=== PATIENT | male | born 1975 | race Caucasian/White ===

== ENCOUNTER 2020-03-14 11:24 | Outpatient (CLI) | payer OTHER, SELFPAY ==
--- NOTE | ~2020-03-14 | XR_ITS ---
EXAMINATION: XR lumbar spine 2-3V DATE: 03/14/2020 11:48 INDICATION: Left-sided low back pain. TECHNIQUE: 3 views of lumbar spine were obtained. COMPARISON: CT abdomen and pelvis 04/21/2019 FINDINGS: There is 7 degrees dextrocurvature of thoracolumbar spine. Vertebral body heights are vineet l. There is mildly decreased disc height at L4-L5 and L5-S1. There is mild facet joint osteoarthritis in lower lumbar spine. IMPRESSION: 1. Mild lumbar spondylosis. Reviewed, dictated and finalized at location B. IMPRESSION: 1. Mild lumbar spondylosis.
== END 2020-03-14 11:25 | disposition home or self-care (01) ==
LOC: CHSLAB 11:26 → CHSIMG 11:29
PROVIDERS: PCP Family Medicine; Visit Provider Family Medicine
DX: M54.5 Low back pain (principal)
CPT/HCPCS: 72100

== ENCOUNTER 2020-03-31 07:29 | Outpatient (CLI) | payer SELFPAY ==
--- NOTE | ~2020-03-31 | MR_ITS ---
EXAMINATION: MR lumbar spine wo con DATE: 03/31/2020 08:32 INDICATION: Low back pain. TECHNIQUE: Magnetic resonance imaging (MRI) of the lumbar spine was performed without intravenous con trast. Sequences included sagittal T2-weighted FSE, sagittal T2-weighted FS FSE, sagittal T1-weighted FSE, and axial T2-weighted FSE. COMPARISON: Lumbar spine radiograph 03/14/2020 FINDINGS: Bone alignment is normal. Vertebral body heights are normal. There is moderately decreased disc height at L4-L5 and L5-S1. The distal spinal cord signal intensity is normal. The conus medullar is is at L1-L2. The following disc levels are specifically discussed: L1-L2: The disc does not extend beyond the endplate margin. There is mild bilateral facet joint osteo arthritis. There is no neural foraminal stenosis. There is no central canal stenosis. L2-L3: The disc does not extend beyond the endplate margin. There is mild bilateral facet joint osteo arthritis. There is no neural foraminal stenosis. There is no central canal stenosis. L3-L4: The disc is mildly bulging. There is mild bilateral facet joint osteoarthritis. There is mild left neural foraminal stenosis. There is mild central canal stenosis. L4-L5: The disc is bulging with superimposed right central extrusion with 12 mm inferior extension. T here is no facet joint osteoarthritis. There is moderate bilateral neural foraminal stenosis. There i s mild central canal stenosis. L5-S1: The disc is bulging and has an annular fissure. There is mild bilateral facet joint osteoarthr itis. There is mild bilateral neural foraminal stenosis. There is no central canal stenosis. IMPRESSION: 1. Moderate lumbar spondylosis. Reviewed, dictated and finalized at location A.
== END 2020-03-31 07:30 | disposition home or self-care (01) ==
LOC: CHSIMG 07:32
PROVIDERS: PCP Family Medicine; Visit Provider Family Medicine
DX: M54.5 Low back pain (principal)
CPT/HCPCS: 72148